=== PATIENT | female | born 1990 | race Hispanic/Latino ===

== ENCOUNTER 2017-10-24 10:49 | Emergency (ER) | payer OTHER ==
[2017-10-24 10:52] VITALS: BMI 20.5
[2017-10-24 11:36] LABS: BASO # 0.1 K/uL (0.0-0.2); BASO % 1.2 % (0.0-2.0); EOS # 0.1 K/uL (0.0-0.7); EOS % 0.7 % (0.0-4.0); HEMOGLOBIN 12.9 g/dL (12.0-16.0); LYMPH % 27.9 % (20.0-40.0); MEAN CELL VOLUME 89.9 fl (81.0-99.0); MEAN CORPUSCULAR HEMOGLOBIN 30.6 pg (27.0-31.0); MEAN PLATELET VOLUME 8.9 fl (7.2-11.7); MONO # 0.8 K/uL (0.0-0.8); MONO % 10.9 % (0.0-10.0); NEUT # 4.3 K/uL (1.8-7.0); NEUT % 59.3 % (50.0-75.0); NRBC % 0.1 % (0.0-0.0); RBC 4.23 Mil/uL (3.80-5.20); RED CELL DISTRIBUTION WIDTH 13.1 % (11.5-14.5); WHITE BLOOD COUNT 7.3 K/uL (4.8-10.8)
--- NOTE | 2017-10-24 11:46 | ED PDOC ---
HPI: Abdomen Time Seen by Provider: 10/24/17 10:52 Chief Complaint (Nursing): Abdominal Pain Chief Complaint (Provider): Pelvic Pain, Vaginal Bleeding History Per: Patient History/Exam Limitations: no limitations Onset/Duration Of Symptoms: Days (x2) Current Symptoms Are (Timing): Still Present Additional Complaint(s): 27 y/o female with no significant PMHx presenting for evaluation of pelvic pain and vaginal bleeding. Patient states she missed her period and was supposed to have it on October 14. She says she took a home test on October 16 which was positive. She states she had plans for termination of the yesterday, however she couldnt been seen due to heavy vaginal bleeding. Patient says shes here today due to right pelvic pain since October 16 and heavy vaginal bleeding all day yesterday. She reports the vaginal bleeding resolved yesterday night. She denies any fever, nausea, vomiting, or urinary symptoms. PMD: None reported Past Medical History Reviewed: Historical Data, Nursing Documentation, Vital Signs Vital Signs: Last Vital Signs Temp 97.7 F 10/24/17 10:52 Pulse 110 H 10/24/17 10:52 Resp 17 10/24/17 10:52 BP 100/67 10/24/17 10:52 Pulse Ox 99 10/24/17 13:41 - Medical History PMH: No Chronic Diseases - Surgical History Surgical History: Tonsillectomy - Family History Family History: States: Unknown Family Hx - Home Medications Home Medications: Ambulatory Orders Medication Instructions Recorded Naproxen [Naprosyn] 500 mg PO Q12 PRN #14 tab 08/25/17 - Allergies Allergies/Adverse Reactions: Allergies Allergy/AdvReac Type Severity Reaction Status Date / Time latex Allergy ANAPHYLAXIS Verified 08/25/17 00:03 Review of Systems ROS Statement: Except As Marked, All Systems Reviewed And Found Negative Constitutional: Negative for: Fever Gastrointestinal: Negative for: Nausea, Vomiting Genitourinary Female: Positive for: Vaginal Bleeding (resolved), Pelvic Pain. Negative for: Dysuria, Frequency, Incontinence Physical Exam - Reviewed Nursing Documentation Reviewed: Yes Vital Signs Reviewed: Yes - Physical Exam Comments: GENERAL APPEARANCE: Patient is awake, alert, oriented x 3, in no distress. SKIN: Warm, dry; (-) cyanosis. EYES: (-) conjunctival pallor, (-) scleral icterus. ENMT: Mucous membranes moist. NECK: (-) tenderness, (-) stiffness, (-) lymphadenopathy. CHEST AND RESPIRATORY: (-) rales, (-) rhonchi, (-) wheezes; breath sounds equal bilaterally. HEART AND CARDIOVASCULAR: (-) irregularity; (-) murmur, (-) gallop. ABDOMEN AND GI: (-) distention. Bowel sounds active; (-) tenderness, (-) guarding, (-) rebound, (-) palpable masses, (-) CVA tenderness. EXTREMITIES: (-) deformity, (-) edema, (+) distal pulses. NEURO AND PSYCH: Mental status as above; (-) focal findings. - Laboratory Results Result Diagrams: 10/24/17 11:12 - ECG O2 Sat by Pulse Oximetry: 99 (RA) Pulse Ox Interpretation: Normal Medical Decision Making Medical Decision Makin:10 Impression: R/o ectopic Plan: -Blood type and screen -BMP -Beta-HCG -Urine -Urine dipstick -CBC w/ differential -US Transvaginal -Reevaluation Uhcg : (+) Udip : (-) beta quant : 14,532 type and screen : O+ US TV : FINDINGS: UTERUS: Measures 8.0 x 6.6 x 4.2 cm. Within the intrauterine cavity/blending subchorionic region, there is mixed echotexture - ; mostly hypoechoic measuring 2.0 x 2.5 x 0.7 cm. 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 Cephalad to this area in the intrauterine cavity there is a irregularly shaped cystic structure with slight hyperechoic rim which may represent a misshapen gestational sac. No intrauterine viable here is identified. The sac size is out of range -mean sac diameter 0.71 cm. ENDOMETRIUM: As above CERVIX: No cervical abnormality identified. RIGHT OVARY: Measures 4.0 x 3.6 x 1 point sick cm. No solid mass. Normal flow. 2.1 x 1.5 x 1.2 cm complex cyst LEFT OVARY: Measures 4.0 x 3.1 x 2.0 cm. No solid mass. Normal flow. 2.8 x 1.8 x 1.6 cm complex cyst FREE FLUID: No significant free fluid noted. OTHER FINDINGS: None. IMPRESSION: No intrauterine embryonic pole with cardiac activity identified. An early less than 6 week gestation is not excluded. The intrauterine cavity irregularly marginated cystic focus may role represent a misshapen gestational sac. Based on its morphology, concern for a ongoing viable developing needs to be considered and close continued follow-up is advised. Follow-up pelvic ultrasound imaging/transvaginal technique 7 to 10 days to re-evaluate. Correlation with serial beta HCG levels as needed. Other finding in and/or bordering the endometrial cavity inferior to the misshapen cystic structure may represent residual blood and/or a regional perigestational bleed. Continued surveillance here is also advised. Bilateral complex cystic ovarian masses and probably physiologic. These can be recheck at short-term follow-up imaging evaluation On re-evaluation, patient no abdominal pain or vaginal bleeding at this time. On exam, patient remains AAOx3, in no acute distress. Diagnostic results d/w the patient in great detail. Diagnosis of possible early vs nonviable d/w the patient. Advised that she will need a repeat beta quant and US repeated in 1 week for re-evaluation. Based on history, exam and diagnostic results, plan will be for outpatient follow up. Patient instructed to follow-up with referral provided / the clinic in 1-2 days without fail. Advised if unable to f/u with [facility] then to return to the ER. Also advised to return to the emergency room at any time for any new or worsening symptoms. Patient states she fully agrees with and understands discharge instructions. States that she agrees with the plan and disposition. Verbalized and repeated discharge instructions and plan. I have given the patient opportunity to ask any additional questions. Scribe Attestation: Documented by Laron Hernandez, acting as a scribe for Guerline Acosta PA-C. Provider Scribe Attestation: All medical record entries made by the Scribe were at my direction and personally dictated by me. I have reviewed the chart and agree that the record accurately reflects my personal performance of the history, physical exam, medical decision making, and the department course for this patient. I have also personally directed, reviewed, and agree with the discharge instructions and disposition. Disposition - Clinical Impression Clinical Impression: Vaginal bleeding affecting early - Patient ED Disposition Is Patient to be Admitted: No Counseled Patient/Family Regarding: Studies Performed, Diagnosis, Need For Followup - Disposition Referrals: [facility] [Outside] [facility] [Outside] Vero Eldridge MD [Staff Provider] - Disposition: Routine/Home Disposition Time: 13:30 Condition: STABLE Additional Instructions: Thank you for letting us take care of you today. You were treated for vaginal bleeding in early . The emergency medical care you received today was directed at your acute symptoms. Have beta quant and US repeated in 1 week for re-evaluation. Return to the Emergency Department if your symptoms worsen, do not improve, or if you have any other problems. Please call one of the physicians/clinics you have been referred to that are listed on the Patient Visit Information form that is included in your discharge packet. Bring any paperwork you were given at discharge with you along with any medications you are taking to your follow up visit. Our treatment cannot replace ongoing medical care by a primary care provider (PCP) outside of the emergency department. Thank you for allowing the [facility] team to be part of your care today. Instructions: Bleeding With Forms: [employer] (Libyan)
--- NOTE | 2017-10-24 12:52 | US ---
Date of service: 10/24/2017 HISTORY: vag bleed, . LMP 09/14/2017. Estimated gestational age by LMP is 5 weeks 5 days. COMPARISON: None available. TECHNIQUE: Transvaginal FINDINGS: UTERUS: Measures 8.0 x 6.6 x 4.2 cm. Within the intrauterine cavity/blending subchorionic region, there is mixed echotexture - ; mostly hypoechoic measuring 2.0 x 2.5 x 0.7 cm. 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 Cephalad to this area in the intrauterine cavity there is a irregularly shaped cystic structure with slight hyperechoic rim which may represent a misshapen gestational sac. No intrauterine viable here is identified. The sac size is out of range -mean sac diameter 0.71 cm. ENDOMETRIUM: As above CERVIX: No cervical abnormality identified. RIGHT OVARY: Measures 4.0 x 3.6 x 1 point sick cm. No solid mass. Normal flow. 2.1 x 1.5 x 1.2 cm complex cyst LEFT OVARY: Measures 4.0 x 3.1 x 2.0 cm. No solid mass. Normal flow. 2.8 x 1.8 x 1.6 cm complex cyst FREE FLUID: No significant free fluid noted. OTHER FINDINGS: None. IMPRESSION: No intrauterine embryonic pole with cardiac activity identified. An early less than 6 week gestation is not excluded. The intrauterine cavity irregularly marginated cystic focus may role represent a misshapen gestational sac. Based on its morphology, concern for a ongoing viable developing needs to be considered and close continued follow-up is advised. Follow-up pelvic ultrasound imaging/transvaginal technique 7 to 10 days to re-evaluate. Correlation with serial beta HCG levels as needed. Other finding in and/or bordering the endometrial cavity inferior to the misshapen cystic structure may represent residual blood and/or a regional perigestational bleed. Continued surveillance here is also advised. Bilateral complex cystic ovarian masses and probably physiologic. These can be recheck at short-term follow-up imaging evaluation
[2017-10-24 13:55] VITALS: BP 110/70; PULSE 74; RESP 20; TEMP 98; O2SAT 98
== END 2017-10-24 13:55 | disposition home or self-care (01) ==
LOC: H.ER 10:49
DX: O20.9 Hemorrhage in early pregnancy, unspecified (principal); Z3A.01 Less than 8 weeks gestation of pregnancy

== ENCOUNTER 2017-11-15 04:38 | Emergency (ER) | payer OTHER ==
[2017-11-15 04:38] VITALS: BMI 20.5
[2017-11-15 04:50] VITALS: TEMP 98.6; O2SAT 99
--- NOTE | 2017-11-15 04:52 | ED PDOC ---
HPI: Abdomen Time Seen by Provider: 11/15/17 04:50 Chief Complaint (Nursing): Abdominal Pain Chief Complaint (Provider): abd pain History Per: Patient Additional Complaint(s): 27-year-old female presents with vomiting and vaginal bleeding for 3 weeks. Patient was seen on October 24 and tested positive for . Patient was told that her ultrasound showed an irregular intrauterine cystic structure. Patient' s beta Quant at that time was almost 14,532. Patient was advised to follow-up with OB but she never did. She presents today with persistent vaginal bleeding and vomiting. Patient has been able to keep down some liquids and solids. No fever or chills. PMD: Dr. Arvind Wiley, [place], [place] Past Medical History Reviewed: Historical Data, Nursing Documentation, Vital Signs Vital Signs: Last Vital Signs Temp 98.6 F 11/15/17 04:46 Pulse 111 H 11/15/17 04:46 Resp 16 11/15/17 04:46 BP 108/71 11/15/17 04:46 Pulse Ox 99 11/15/17 05:51 - Medical History PMH: No Chronic Diseases - Surgical History Surgical History: Tonsillectomy Other surgeries: bunionectomy - Family History Family History: States: No Known Family Hx - Living Arrangements Living Arrangements: With Family - Social History Current smoker - smoking cessation education provided: No Alcohol: None Drugs: Denies - Home Medications Home Medications: Ambulatory Orders Medication Instructions Recorded Naproxen [Naprosyn] 500 mg PO Q12 PRN #14 tab 08/25/17 - Allergies Allergies/Adverse Reactions: Allergies Allergy/AdvReac Type Severity Reaction Status Date / Time latex Allergy ANAPHYLAXIS Verified 08/25/17 00:03 Review of Systems ROS Statement: Except As Marked, All Systems Reviewed And Found Negative Constitutional: Negative for: Fever, Chills Cardiovascular: Negative for: Chest Pain Respiratory: Negative for: Cough Gastrointestinal: Positive for: Nausea, Vomiting, Abdominal Pain. Negative for : Diarrhea Genitourinary Female: Positive for: Vaginal Bleeding, Pelvic Pain. Negative for : Dysuria, Hematuria Physical Exam - Reviewed Nursing Documentation Reviewed: Yes Vital Signs Reviewed: Yes - Physical Exam Appears: Positive for: Well, Non-toxic, No Acute Distress Skin: Positive for: Normal Color. Negative for: Rash Eye Exam: Positive for: Normal appearance Cardiovascular/Chest: Positive for: Regular Rate, Rhythm Respiratory: Positive for: Normal Breath Sounds. Negative for: Wheezing, Respiratory Distress Gastrointestinal/Abdominal: Positive for: Soft. Negative for: Tenderness, Distended, Guarding, Rebound Back: Negative for: L CVA Tenderness, R CVA Tenderness Extremity: Positive for: Normal ROM Neurologic/Psych: Positive for: Alert, Oriented - Laboratory Results Urine POC: Positive Urine dip results: Positive for: Blood (large). Negative for: Leukocyte Esterase, Nitrate, Ketones, Glucose, Bilirubin, Protein - ECG O2 Sat by Pulse Oximetry: 99 Pulse Ox Interpretation: Normal Medical Decision Making Medical Decision Makin27 y/o female with vomiting and vaginal bleeding Plan: Urine dip Urine test CBC CMP Beta quant IVF IV zofran OB TV US Disposition - Clinical Impression Clinical Impression: Vaginal bleeding, Vomiting - Patient ED Disposition Is Patient to be Admitted: Transfer of Care - Disposition Referrals: Yamileth Wiley MD [Primary Care Provider] - Disposition: Transfer of Care Disposition Time: 06:00 Condition: FAIR Forms: [employer] (Arabic) Patient Signed Over To: Kenny Mak Handoff Comments: Signed out pending diagnostic testing results and final dispo
[2017-11-15] MEDS: Sodium Chloride 0.9% 1,000 ML IV STA (05:23)
[2017-11-15 06:03] LABS: BASO # 0.1 K/uL (0.0-0.2); EOS # 0.1 K/uL (0.0-0.7); EOS % 1.3 % (0.0-4.0); HEMOGLOBIN 14.3 g/dL (12.0-16.0); LYMPH # 2.3 K/uL (1.0-4.3); LYMPH % 21.5 % (20.0-40.0); MEAN CELL VOLUME 89.7 fl (81.0-99.0); MEAN CORPUSCULAR HEMOGLOBIN 30.9 pg (27.0-31.0); MEAN CORPUSCULAR HGB CONC 34.4 g/dL (33.0-37.0); MONO # 0.7 K/uL (0.0-0.8); MONO % 6.9 % (0.0-10.0); NEUT # 7.3 K/uL (1.8-7.0); NEUT % 69.3 % (50.0-75.0); NRBC % 0.1 % (0.0-0.0); RBC 4.63 Mil/uL (3.80-5.20); RED CELL DISTRIBUTION WIDTH 12.9 % (11.5-14.5); WHITE BLOOD COUNT 10.5 K/uL (4.8-10.8)
[2017-11-15 06:06] LABS: ALB/GLOB RATIO 1.7 (1.0-2.1); ALBUMIN 4.6 g/dL (3.5-5.0); ALT/SGPT 26 U/L (9-52); AST/SGOT 23 U/L (14-36); BLOOD UREA NITROGEN 7 mg/dl (7-17); CALCIUM 9.7 mg/dL (8.4-10.2); GFR AFRICAN-AMERICAN > 60; GFR NON-AFRICAN AMERICAN > 60
--- NOTE | 2017-11-15 06:06 | ED PDOC ---
- Laboratory Results Result Diagrams: 11/15/17 05:20 11/15/17 05:20 Urine POC: Positive - ECG O2 Sat by Pulse Oximetry: 99 (RA) Pulse Ox Interpretation: Normal Medical Decision Making Medical Decision Making: Time: 6:00 Patient was signed out to me by QI Serrano pending US, reevaluation, and disposition. 7:00 Patient will be signed out to Dr. Boateng pending US, reevaluation, and disposition. Scribe Attestation: Documented by, Jasmyn Tsai acting as a scribe for Kenny Mak MD. Provider Scribe Attestation: All medical record entries made by the Scribe were at my direction and personally dictated by me. I have reviewed the chart and agree that the record accurately reflects my personal performance of the history, physical exam, medical decision making, and the department course for this patient. I have also personally directed, reviewed, and agree with the discharge instructions and disposition. Disposition - Clinical Impression Clinical Impression: Abdominal pain during - POA Present On Arrival: None - Disposition Referrals: [facility] [Outside] [facility] [Outside] Yaimleth Wiley MD [Primary Care Provider] - Disposition: Routine/Home Disposition Time: 07:00 Condition: STABLE Prescriptions: Doxylamine/Pyridoxine HCl (B6) [James Diego 10-10 mg Tablet] 1 each PO HS PRN # 10 tablet. PRN Reason: Nausea/Vomiting Vit Calc,Iron,Folic [ Vitamins] 1 each PO DAILY #30 tablet Instructions: Threatened Miscarriage, Bleeding With Forms: [employer] (Chinese)
--- NOTE | 2017-11-15 07:09 | ED PDOC ---
- Laboratory Results Result Diagrams: 11/15/17 05:20 11/15/17 05:20 Urine POC: Positive - ECG O2 Sat by Pulse Oximetry: 99 (RA) Pulse Ox Interpretation: Normal - Physician Consult Information Time Consulting Physican Contacted: 10:11 Physician Contacted: Amilcar Pérez Outcome Of Conversation: Case discussed, nothing to do at thsi time, recommends follow-up in [facility] within 1 week, d/c home with bleeding precautions. Medical Decision Making Medical Decision Makin Patient is transferred from Dr. Mak's care to myself pending US and reevaluation. 927 Transvaginal US FINDINGS: UTERUS: Uterus is anteverted measuring 10.9 x 6.0 x 4.1 cm with a sac-like collection in the endometrial cavity identified in the interval measuring 2.2 x 2.0 x 2.3 cm with a mean sac diameter of 2.1 cm. The size suggests potential gestation of 6 weeks 5 days which is discrepant with LMP derived dates. There are numerous septations within this sac which are irregular and avascular on color per ultrasound. No defined pole or yolk sac is identifiable. Sonographic interrogation of the septations including those appearing nodular, fails to to return potential cardiac activity. The findings suggest likely failure of gestation and may include blighted ovum. Gestational trophoblastic disease is not favored given the lack of more prominent heterogeneity. Moderate to low density fluid is seen representing a chorionic hemorrhage inferiorly, moderate to large in size. Myometrium remains grossly nonfocal. CERVIX: Measures 3.0 cm. Appears mildly foreshortened and is otherwise grossly nonfocal. Internal os appears closed. RIGHT OVARY: The right ovary is not identified (transabdominally or transvaginally) at this time likely as a function of obscuring by bowel. LEFT OVARY: Measures 3.2 x 2.9 x 1.5 cm. No solid mass. Normal flow. FREE FLUID: None. OTHER FINDINGS: None. IMPRESSION: 1. An irregular fluid-filled structure is identified within the endometrial cavity suggestive of a gestational sac with numerous septations with mean sac diameter suggesting 6 week 5 day potential gestation. No definable pole or definite yolk sac. There is a moderate to large inferior chorionic hemorrhage related. Cervix measures 3.0 cm with a closed internal os. Consider failure of gestation potentially, including blighted ovum, though other etiologies are possible. Clinical and sonographic follow-up are advised including serial beta HCG analysis. 2. Right ovary obscured by bowel. Left ovary appears unremarkable in the interval. Findings discussed with Dr. Boateng with written down and read back verification 11/15/2017 9:20 a.m.. ----- Scribe Attestation: Documented by Sharri Garcias, acting as a scribe for Radha Boateng MD. Provider Scribe Attestation: All medical record entries made by the Scribe were at my direction and personally dictated by me. I have reviewed the chart and agree that the record accurately reflects my personal performance of the history, physical exam, medical decision making, and the department course for this patient. I have also personally directed, reviewed, and agree with the discharge instructions and disposition. Disposition - Clinical Impression Clinical Impression: Threatened - POA Present On Arrival: None - Disposition Referrals: Yamileth Wiley MD [Primary Care Provider] - [facility] [Outside] [facility] [Outside] Disposition: Routine/Home Disposition Time: 10:13 Condition: STABLE Prescriptions: Doxylamine/Pyridoxine HCl (B6) [James Diego 10-10 mg Tablet] 1 each PO HS PRN # 10 tablet.[address] [place] Reason: Nausea/Vomiting Vit Calc,Iron,Folic [ Vitamins] 1 each PO DAILY #30 tablet Instructions: Threatened Miscarriage, Bleeding With Forms: [employer] (Telugu)
--- NOTE | 2017-11-15 09:54 | US ---
Date of service: 11/15/2017 PROCEDURE: OB Pelvic Ultrasound HISTORY: with vaginal bleeding LMP: 10/03/2017, suggesting estimated gestational age of 8 weeks 6 days. COMPARISON: Transvaginal obstetric ultrasound 10/24/2017. Further imaging was performed by trans abdominal technique on a limited basis. FINDINGS: UTERUS: Uterus is anteverted measuring 10.9 x 6.0 x 4.1 cm with a sac-like collection in the endometrial cavity identified in the interval measuring 2.2 x 2.0 x 2.3 cm with a mean sac diameter of 2.1 cm. The size suggests potential gestation of 6 weeks 5 days which is discrepant with LMP derived dates. There are numerous septations within this sac which are irregular and avascular on color per ultrasound. No defined pole or yolk sac is identifiable. Sonographic interrogation of the septations including those appearing nodular, fails to to return potential cardiac activity. The findings suggest likely failure of gestation and may include blighted ovum. Gestational trophoblastic disease is not favored given the lack of more prominent heterogeneity. Moderate to low density fluid is seen representing a chorionic hemorrhage inferiorly, moderate to large in size. Myometrium remains grossly nonfocal. CERVIX: Measures 3.0 cm. Appears mildly foreshortened and is otherwise grossly nonfocal. Internal os appears closed. RIGHT OVARY: The right ovary is not identified (transabdominally or transvaginally) at this time likely as a function of obscuring by bowel. LEFT OVARY: Measures 3.2 x 2.9 x 1.5 cm. No solid mass. Normal flow. FREE FLUID: None. OTHER FINDINGS: None. IMPRESSION: 1. An irregular fluid-filled structure is identified within the endometrial cavity suggestive of a gestational sac with numerous septations with mean sac diameter suggesting 6 week 5 day potential gestation. No definable pole or definite yolk sac. There is a moderate to large inferior chorionic hemorrhage related. Cervix measures 3.0 cm with a closed internal os. Consider failure of gestation potentially, including blighted ovum, though other etiologies are possible. Clinical and sonographic follow-up are advised including serial beta HCG analysis. 2. Right ovary obscured by bowel. Left ovary appears unremarkable in the interval. Findings discussed with Dr. Boateng with written down and read back verification 11/15/2017 9:20 a.m..
[2017-11-15 10:31] VITALS: BP 110/70; PULSE 92; RESP 18
== END 2017-11-15 10:30 | disposition home or self-care (01) ==
LOC: H.ER 04:38
DX: O20.0 Threatened abortion (principal)
CPT/HCPCS: 76817; 80053; 84702; 85025; 87491; 87591; 96360; 99284; J2405; J7030